=== PATIENT | female | born 1990 | race Two or more races ===

== ENCOUNTER 2018-12-07 11:55 | Emergency (ER) | payer SELFPAY ==
[~2018-12-07] VITALS: Ht 167.6 cm; Wt 77.1 kg
[2018-12-07 12:06] VITALS: BP 125/58
[2018-12-07] MEDS ORDERED: METH4TAB2 PO (12:21)
[2018-12-07] MEDS ORDERED: BENZ100C PO (12:21)
[2018-12-07] MEDS ORDERED: PROM118S5 PO (12:21)
--- NOTE | 2018-12-07 12:22 | PHYS DOC ---
Past Medical History Past Medical History: Other Additional Past Medical Histor: RA Past Surgical History: No Surgical History Alcohol Use: None Drug Use: None Adult General Chief Complaint Chief Complaint: COU[facility] HPI Patient is a 28 year old female who presents with cough times one month. Denies fever or coughing up any mucus. Denies shortness of breath. She states she's been to the doctor earlier on in the sickness and they gave her a antibiotic, inhaler, Tessalon Perles. Patient states she's finished the antibiotic and Tessalon Perles. Patient states that the antibiotic and Tessalon Perles did not work. Review of Systems Review of Systems Constitutional: Denies fever or chills [] Eyes: Denies change in visual acuity, redness, or eye pain [] HENT: Denies nasal congestion or sore throat [] Respiratory: cough. Denies shortness of breath [] Cardiovascular: No additional information not addressed in HPI [] GI: Denies abdominal pain, nausea, vomiting, bloody stools or diarrhea [] : Denies dysuria or hematuria [] Musculoskeletal: Denies back pain or joint pain [] Integument: Denies rash or skin lesions [] Neurologic: Denies headache, focal weakness or sensory changes [] All other systems were reviewed and found to be within normal limits, except as documented in this note. Allergies Allergies Allergies Coded Allergies Type Severity Reaction Last Updated Verified guaifenesin Allergy Severe throat swelling 12/07/18 Yes Physical Exam Physical Exam Constitutional: Well developed, well nourished, no acute distress, non-toxic appearance. [] HENT: Normocephalic, atraumatic, bilateral external ears normal, oropharynx moist, no oral exudates, nose normal. [] Eyes: PERRLA, EOMI, conjunctiva normal, no discharge. [] Neck: Normal range of motion, no tenderness, supple, no stridor. [] Cardiovascular:Heart rate regular rhythm, no murmur [] Lungs & Thorax: Bilateral breath sounds clear to auscultation [] Abdomen: Bowel sounds normal, soft, no tenderness, no masses, no pulsatile masses. [] Skin: Warm, dry, no erythema, no rash. [] Back: No tenderness, no CVA tenderness. [] Extremities: No tenderness, no cyanosis, no clubbing, ROM intact, no edema. [] Neurologic: Alert and oriented X 3, normal motor function, normal sensory function, no focal deficits noted. [] Psychologic: Affect normal, judgement normal, mood normal. [] Current Patient Data Vital Signs Vital Signs Date Time Temp Pulse Resp B/P (MAP) Pulse Ox O2 Delivery O2 Flow Rate FiO2 12/07/18 12:06 98.1 75 16 125/58 (80) 96 Room Air 98.1 EKG EKG [] Radiology/Procedures Radiology/Procedures [] Course & Med Decision Making Course & Med Decision Making Patient is a 28 year old female who presents with cough times one month. Denies fever or coughing up any mucus. Denies shortness of breath. She states she's been to the doctor earlier on in the sickness and they gave her a antibiotic, inhaler, Tessalon Perles. Patient states she's finished the antibiotic and Tessalon Perles. Patient states that the antibiotic and Tessalon Perles did not work. Alert and oriented. Afebrile. Vital signs are within normal limits. Heart rate regular without murmur. Lungs are clear to auscultation lobes. Throat is pink without exudates. Patient complains of no pain. She denies chest pain or shortness of air. Patient states she'll be coughing so hard that she will gag. Patient states that she cannot take over-the -counter Robitussin because she is allergic to something gradients. Patient will be placed on a Medrol Dosepak to continue using her inhalers. Patient was also given promethazine with codeine to help with cough and hopefully sleep. Patient denies abdominal pain or nausea vomiting diarrhea. Patient is stable and needs follow up with primary care doctor. Shayy Disclaimer Dragon Disclaimer This electronic medical record was generated, in whole or in part, using a voice recognition dictation system. Departure Departure Impression: Primary Impression: Cough Disposition: 01 HOME, SELF-CARE Condition: STABLE Patient Instructions: Cough, Adult Additional Instructions: FOLLOW UP WITH PRIMARY CARE PROVIDER. TAKE MEDICATIONS PRESCRIBED. CONTINUE USING YOUR INHALERS. Scripts Promethazine Hcl/Codeine (PROMETHAZINE-CODEINE SYRUP) 118 Ml Syrup 5 ML PO Q4-6HRS, #120 ML Prov: GIANFRANCO AQUINO FIT MODEL 12/07/18 Methylprednisolone (MEDROL) 4 Mg Tab.ds.pk 1 PKG PO UD, #1 PKG Prov: GIANFRANCO AQUINO APRN 12/07/18 GIANFRANCO AQUINO APRN Dec 07, 2018 12:22
== END 2018-12-07 12:35 | disposition home or self-care (01) ==
LOC: ER 11:55
DX: R05 Cough (principal); M06.9 Rheumatoid arthritis, unspecified; Z88.8 Allergy status to other drugs, medicaments and biological substances
CPT/HCPCS: 99283